=== PATIENT | male | born 1980 | race African-American/Black ===

== ENCOUNTER → 2016-08-27 | Outpatient (CLI) | payer MEDICAID ==
[~2016-08-27] MED LIST: AZIT500T4 PO; CARB-60 PO; DIVA500T35 PO; DIVA500T52 PO; LACT10SO32 PO; LEVO100T14 PO; LORA2TAB2 PO; MULT1CAP32 PO; OLAN15TA2 PO; OMEP20 PO; QUET100T PO; RISP3 PO; VALP250C3 PO; [UNRECOGNIZED DRUG - CODE] PO
== END | disposition home or self-care (01) ==
LOC: RADMN 10:05
PROVIDERS: ATTEND Family Medicine
DX: I51.7 Cardiomegaly (principal); I70.0 Atherosclerosis of aorta; K80.20 Calculus of gallbladder without cholecystitis without obstruction; J98.11 Atelectasis; M99.88 Other biomechanical lesions of rib cage; M46.04 Spinal enthesopathy, thoracic region
CPT/HCPCS: 71250

== ENCOUNTER → 2017-07-22 | Outpatient (CLI) | payer MEDICAID | END | disposition home or self-care (01) | LOC: RADPV 10:03 | PROVIDERS: ATTEND Family Medicine | DX: M81.0 Age-related osteoporosis without current pathological fracture (principal); E55.9 Vitamin D deficiency, unspecified | CPT/HCPCS: 77080 ==

== ENCOUNTER 2018-06-19 06:24 | Day surgery (SDC) | payer OTHER, MEDICAID ==
[~2018-06-19] VITALS: Ht 162.6 cm; Wt 81.4 kg
[~2018-06-19 06:24] MED LIST changes: -AZIT500T4 PO; +CALC-461 PO; +CHLO50 PO; +DIAZ2 PO; -DIVA500T35 PO; -DIVA500T52 PO; +LISI-661 PO; +LORA1TAB3 PO; -MULT1CAP32 PO; -OMEP20 PO; +PARO20TA24 PO; +POLY15DR57 OU; +RANI150T7 PO; -RISP3 PO; -VALP250C3 PO; +VITAD1000 PO
[2018-06-19] MEDS ORDERED: DEXAMETHASONE SOD PHOS 4 MG/ML VIAL IVP ONE (06:25)
[2018-06-19] MEDS ORDERED: FentaNYL CITRATE-PF 100 MCG/2 ML VIAL IVP ONE (06:25)
[2018-06-19] MEDS ORDERED: SUCCINYLCHOLINE CHLORIDE 20 MG/ML 10 ML VIAL IVP ONE (06:25)
[2018-06-19] MEDS ORDERED: 0.9% SODIUM CHLORIDE 10 ML VIAL IVP ONE (06:25)
[2018-06-19] MEDS ORDERED: ONDANSETRON HCL 4 MG/2 ML VIAL IVP ONE (06:25)
[2018-06-19] MEDS ORDERED: PHENYLEPHRINE HCL 10 MG/ML VIAL IVP ONE (06:25)
[2018-06-19] MEDS ORDERED: PROPOFOL 1% 20 ML VIAL IVP ONE (06:25)
[2018-06-19] MEDS ORDERED: EPHEDrine SULFATE 50 MG/ML VIAL IM ONE (06:25)
[2018-06-19] MEDS ORDERED: LIDOCAINE/PF 2% 5 ML VIAL IM ONE (06:25)
[2018-06-19] MEDS ORDERED: RINGERS SOLUTION,LACTATED 1,000 ML IV ONE ×2 (06:29→06:30)
[2018-06-19] MEDS ORDERED: SODIUM CHLORIDE 0.9% 100 ML ONE (06:34)
[2018-06-19] MEDS ORDERED: AMPICILLIN SODIUM 1 GM/VIAL ONE (06:34)
== END 2018-06-19 12:40 | disposition short-term general hospital (02) ==
LOC: SURGERY 06:24
PROVIDERS: ATTEND Dentist General Practice
DX: K05.30 Chronic periodontitis, unspecified (principal); K03.6 Deposits [accretions] on teeth; I10 Essential (primary) hypertension; K21.9 Gastro-esophageal reflux disease without esophagitis; G80.0 Spastic quadriplegic cerebral palsy; E03.9 Hypothyroidism, unspecified; G40.909 Epilepsy, unspecified, not intractable, without status epilepticus; E66.3 Overweight
CPT/HCPCS: 41899; J0290; J0330; J1100; J2370; J2405; J2704; J3010; J3490 ×2; J7050; J7120

== ENCOUNTER 2021-07-20 06:51 | Day surgery (SDC) | payer OTHER, MEDICAID ==
[~2021-07-20] VITALS: Ht 162.6 cm; Wt 99.8 kg
[~2021-07-20 06:51] MED LIST changes: +AMOX1TAB16 PO; +CALC-1238 PO; -CALC-461 PO; -CARB-60 PO; -CHLO50 PO; +CHLO50TA61 PO; +FAMO20 PO; +LACT10SO10 PO; -LACT10SO32 PO; +LACT1CAP62 PO; -LEVO100T14 PO; +LEVO125 PO; -LISI-661 PO; +LISI-893 PO; +LORA-1000 PO; -LORA1TAB3 PO; -LORA2TAB2 PO; +METR500 PO; +PARO-38 PO; -PARO20TA24 PO; +POLY15DR29 OU; -POLY15DR57 OU; -RANI150T7 PO; +RINGERS SOLUTION,LACTATED 1,000 ML IV ONE; +SODIUM CHLORIDE 0.9% 1,000 ML IV ONE; -VITAD1000 PO; -[UNRECOGNIZED DRUG - CODE] PO
[2021-07-20] MEDS ORDERED: RINGERS SOLUTION,LACTATED 1,000 ML IV ONE (07:01)
[2021-07-20 07:33] LABS: COVID AG,FIA SOURCE NASAL SWAB
[2021-07-20] MEDS ORDERED: CALC-1238 PO (07:47)
[2021-07-20] MEDS ORDERED: POLY17PO47 PO (07:47)
[2021-07-20] MEDS ORDERED: CARB200C7 PO (07:47)
[2021-07-20 09:40] LABS: BASOPHILS % (AUTO) 0.4 % (0.0-2.0); EOSINOPHILS % (AUTO) 1.8 % (1.0-6.0); HEMATOCRIT 39.2 % (41-53); HEMOGLOBIN 13.4 g/dL (13.5-17.5); LYMPHOCYTES # (AUTO) 1.6 K/uL (1.0-4.8); LYMPHOCYTES % (AUTO) 39.5 % (22.0-44.0); MEAN CORPUSCULAR HEMOGLOBIN 29.8 pg (26.0-34.0); MEAN CORPUSCULAR HGB CONC 34.3 G/dL (31.0-37.0); MEAN CORPUSCULAR VOLUME 87 fL (80-100); MONOCYTES # (AUTO) 0.2 K/uL (0.1-1.0); MONOCYTES % (AUTO) 4.6 % (2.0-9.0); NEUTROPHILS # (AUTO) 2.1 K/uL (1.8-7.7); NEUTROPHILS % (AUTO) 53.7 % (40.0-70.0); PLATELET COUNT (AUTO) 248 K/uL (150-450); RED BLOOD CELL COUNT(AUTO) 4.52 MIL/uL (4.50-5.90); RED CELL DISTRIBUTION WIDTH 14.2 % (11.5-14.5)
[2021-07-20 09:50] LABS: ANION GAP 7 mmol/L (8-16); CALCIUM, TOTAL 9.4 mg/dL (8.8-10.5); CARBON DIOXIDE 31 mmol/L (22-29); CHLORIDE 99 mmol/L (98-107); GLOMERULAR FILTR. RATE CALC > 60 mL/min (>60); GLUCOSE,RANDOM 80 mg/dL (70-110); POTASSIUM 4.5 mmol/L (3.5-5.1); SODIUM SERUM 137 mmol/L (136-145); UREA NITROGEN, BLOOD 12 mg/dL (7-18)
[2021-07-20 09:54] LABS: INR 1.1 (0.9-1.1); PROTHROMBIN TIME 11.5 SEC (9.4-11.6)
[2021-07-20 09:56] LABS: ALANINE AMINOTRANSFERASE 37 U/L (12-78); ALKALINE PHOSPHATASE 201 U/L (46-116); ASPARTATE AMINOTRANSFERASE 32 U/L (15-37); BILIRUBIN,TOTAL 0.2 mg/dL (0.1-1.0); TOTAL PROTEIN, SERUM 8.3 g/dL (6.4-8.2)
[2021-07-20] MEDS ORDERED: KETAMINE HCL 50 MG/ML 10 ML VIAL ONE (11:12)
[2021-07-20] MEDS ORDERED: MIDAZOLAM HCL 5 MG/ML VIAL ONE ×2 (11:13)
[2021-07-20] MEDS ORDERED: SUGAMMADEX SODIUM 200 MG/2 ML VIAL IVP ONE (13:44)
== END 2021-07-20 15:15 | disposition home or self-care (01) ==
LOC: SURGERY 06:51
PROVIDERS: ATTEND Dentist General Practice
DX: K02.9 Dental caries, unspecified (principal); K05.30 Chronic periodontitis, unspecified; K00.7 Teething syndrome; G40.909 Epilepsy, unspecified, not intractable, without status epilepticus; G80.9 Cerebral palsy, unspecified; F41.9 Anxiety disorder, unspecified; E03.9 Hypothyroidism, unspecified; K21.9 Gastro-esophageal reflux disease without esophagitis; Z79.899 Other long term (current) drug therapy; Z79.01 Long term (current) use of anticoagulants; Z98.890 Other specified postprocedural states; Z88.8 Allergy status to other drugs, medicaments and biological substances
CPT/HCPCS: 36415; 41899; 71045; 80053; 85025; 85610; 85730; 87426; 93005; C9803; J2250; J3490; J7120; Q9967

== ENCOUNTER 2023-01-03 06:17 | Day surgery (SDC) | payer OTHER, MEDICAID ==
[~2023-01-03] VITALS: Ht 160 cm; Wt 84.5 kg
[~2023-01-03 06:17] MED LIST changes: +AMLO-257 PO; -AMOX1TAB16 PO; +ATOR20TA65 PEG; -CALC-1238 PO; +CALC-1275 PEG; +CARB100O10 PEG; -CHLO50TA61 PO; +DIAZ2 PEG; -DIAZ2 PO; -FAMO20 PO; +FAMO20TA8 PEG; +LACT10SO10 PEG; -LACT10SO10 PO; -LACT1CAP62 PO; +LEVE500S10 GT; +LEVO125 NG; +LEVO125 PEG; -LEVO125 PO; -LISI-893 PO; +LISI10TA24 PEG; -LORA-1000 PO; -METR500 PO; -OLAN15TA2 PO; +OLAN5TAB52 PEG; +OLAN5TAB77 PEG; +PARO-37 PEG; -PARO-38 PO; -QUET100T PO; -RINGERS SOLUTION,LACTATED 1,000 ML IV ONE; -SODIUM CHLORIDE 0.9% 1,000 ML IV ONE; +[UNRECOGNIZED DRUG - CODE] PEG
[2023-01-03] MEDS ORDERED: RINGERS SOLUTION,LACTATED 1,000 ML IV ONE ×2 (06:23→06:30)
[2023-01-03] MEDS ORDERED: AMPICILLIN SODIUM 2 GM/NS 100 ML IV ONE (07:26)
[2023-01-03] MEDS ORDERED: LACT10SO75 GT (07:58)
[2023-01-03] MEDS ORDERED: FLUT16SP NASAL (07:58)
[2023-01-03] MEDS ORDERED: LEVE100S7 GT (07:58)
[2023-01-03] MEDS ORDERED: OLAN15TA36 PO (07:58)
[2023-01-03] MEDS ORDERED: OLAN2.5T29 PO (07:58)
[2023-01-03] MEDS ORDERED: GARL500C2 GT (08:06)
[2023-01-03] MEDS ORDERED: MULT-660 GT (08:06)
[2023-01-03] MEDS ORDERED: GUAR1PAC4 GT (08:06)
[2023-01-03] MEDS ORDERED: POLY17PO47 GT (08:06)
[2023-01-03] MEDS ORDERED: CHOL25TA4 GT (08:06)
[2023-01-03] MEDS ORDERED: LORA10TA7 GT (08:06)
[2023-01-03] MEDS ORDERED: OS500 PO (08:06)
[2023-01-03] MEDS ORDERED: SENN-376 PO (08:06)
[2023-01-03 08:31] LABS: BASOPHILS % (AUTO) 0.7 % (0.0-2.0); EOSINOPHILS % (AUTO) 5.7 % (1.0-6.0); HEMATOCRIT 39.1 % (41-53); HEMOGLOBIN 13.3 g/dL (13.5-17.5); LYMPHOCYTES # (AUTO) 2.3 K/uL (1.0-4.8); LYMPHOCYTES % (AUTO) 41.3 % (22.0-44.0); MEAN CORPUSCULAR HEMOGLOBIN 28.9 pg (26.0-34.0); MEAN CORPUSCULAR VOLUME 85 fL (80-100); MONOCYTES # (AUTO) 0.3 K/uL (0.1-1.0); NEUTROPHILS # (AUTO) 2.6 K/uL (1.8-7.7); NEUTROPHILS % (AUTO) 46.3 % (40.0-70.0); PLATELET COUNT (AUTO) 271 K/uL (150-450); RED BLOOD CELL COUNT(AUTO) 4.61 MIL/uL (4.50-5.90); RED CELL DISTRIBUTION WIDTH 13.6 % (11.5-14.5); WHITE BLOOD COUNT (AUTO) 5.6 K/uL (4.5-11.0)
[2023-01-03 08:44] LABS: PROTHROMBIN TIME 10.9 SEC (9.4-11.6)
[2023-01-03 08:50] LABS: ANION GAP 8 mmol/L (8-16); CALCIUM, TOTAL 9.3 mg/dL (8.8-10.5); CARBON DIOXIDE 30 mmol/L (22-29); CHLORIDE 100 mmol/L (98-107); CREATININE 0.49 mg/dL (0.60-1.30); GLOMERULAR FILTR. RATE CALC > 60 mL/min (>60); GLUCOSE,RANDOM 100 mg/dL (70-110); POTASSIUM 4.4 mmol/L (3.5-5.1); SODIUM SERUM 138 mmol/L (136-145); UREA NITROGEN, BLOOD 12 mg/dL (7-18)
[2023-01-03 08:59] LABS: ALANINE AMINOTRANSFERASE 39 U/L (12-78); ALBUMIN 3.5 g/dL (3.4-5.0); ALKALINE PHOSPHATASE 262 U/L (46-116); ASPARTATE AMINOTRANSFERASE 28 U/L (15-37); BILIRUBIN,TOTAL 0.3 mg/dL (0.1-1.0); TOTAL PROTEIN, SERUM 7.9 g/dL (6.4-8.2)
[2023-01-03] MEDS ORDERED: ROCURONIUM BROMIDE 10 MG/ML 5 ML VIAL IVP ONE (12:00)
[2023-01-03] MEDS ORDERED: SUGAMMADEX SODIUM 200 MG/2 ML VIAL IVP ONE (12:00)
[2023-01-03] MEDS ORDERED: DEXAMETHASONE SOD PHOS 4 MG/ML VIAL IVP ONE (12:00)
[2023-01-03] MEDS ORDERED: LIDOCAINE/PF 2% 5 ML VIAL IM ONE (12:00)
[2023-01-03] MEDS ORDERED: PROPOFOL 1% 20 ML VIAL IVP ONE (12:00)
[2023-01-03] MEDS ORDERED: ONDANSETRON HCL 4 MG/2 ML VIAL IVP ONE (12:00)
== END 2023-01-03 14:30 | disposition home or self-care (01) ==
LOC: SURGERY 06:17
PROVIDERS: ATTEND Dentist General Practice
DX: K05.30 Chronic periodontitis, unspecified (principal); K05.5 Other periodontal diseases; E03.9 Hypothyroidism, unspecified; F41.9 Anxiety disorder, unspecified; K59.00 Constipation, unspecified; K21.9 Gastro-esophageal reflux disease without esophagitis; Z79.01 Long term (current) use of anticoagulants; Z79.899 Other long term (current) drug therapy; G80.9 Cerebral palsy, unspecified; G40.909 Epilepsy, unspecified, not intractable, without status epilepticus; Z98.890 Other specified postprocedural states
CPT/HCPCS: 41899; 71045; 80053; 85025; 85610; 85730; 36415; 93005; J0290; J2704; J1100; J3490 ×2; J2405; Q9967; J7120

== ENCOUNTER → 2024-05-28 | Day surgery (SDC) | payer OTHER ==
[~2024-05-28] VITALS: Ht 162.6 cm; Wt 83.6 kg
[~2024-05-28] MED LIST changes: +AMPICILLIN SODIUM 2 GM/NS 0 ML IV ONE; +ATOR20TA PO; -ATOR20TA65 PEG; -CALC-1275 PEG; -CARB100O10 PEG; +CARB200T6 PO; +CHOL25TA4 GT; +CLON0.5T4 PO; -DIAZ2 PEG; +FAMO20 PO; -FAMO20TA8 PEG; +FLUT16SP NASAL; +GARL500C9 PO; -LACT10SO10 PEG; -LEVE500S10 GT; +LEVE500S33 PO; -LEVO125 NG; -LEVO125 PEG; +LEVO125T95 PO; +LISI-893 PO; -LISI10TA24 PEG; +LORA10TA7 PO; +METO5TAB2 PO; +MULT-660 PO; +OLAN15TA98 PO; +OLAN2.5T78 PO; -OLAN5TAB52 PEG; -OLAN5TAB77 PEG; +OS500 PO; -PARO-37 PEG; +PARO-38 PO; -POLY15DR29 OU; +RINGERS SOLUTION,LACTATED 1,000 ML IV ONE; +SENN-376 PO; +SODIUM CHLORIDE 0.9% 1,000 ML IV ONE; -[UNRECOGNIZED DRUG - CODE] PEG
== END | disposition still patient (30) ==
LOC: SURGERY 06:25
PROVIDERS: ATTEND Dentist General Practice
DX: K05.6 Periodontal disease, unspecified (principal); Z53.8 Procedure and treatment not carried out for other reasons; K21.9 Gastro-esophageal reflux disease without esophagitis; G40.909 Epilepsy, unspecified, not intractable, without status epilepticus; G80.9 Cerebral palsy, unspecified; F41.9 Anxiety disorder, unspecified; Z88.8 Allergy status to other drugs, medicaments and biological substances; E03.9 Hypothyroidism, unspecified; K59.00 Constipation, unspecified; Z87.01 Personal history of pneumonia (recurrent); Z79.899 Other long term (current) drug therapy; Z98.890 Other specified postprocedural states
CPT/HCPCS: 71045; 93005; J7120; J0290